=== PATIENT | female | born 1990 | race Two or more races ===

== ENCOUNTER 2023-01-04 14:57 | Emergency (ER) | payer SELFPAY ==
[~2023-01-04] VITALS: Ht 160 cm; Wt 59.0 kg
[2023-01-04 14:59] VITALS: BP 126/81; PULSE 99; RESP 16; TEMP 99.1; O2SAT 98
== END 2023-01-04 15:46 | disposition home or self-care (01) ==
LOC: ER 15:00
DX: Z00.00 Encounter for general adult medical examination without abnormal findings (principal); J45.909 Unspecified asthma, uncomplicated; Z88.8 Allergy status to other drugs, medicaments and biological substances; Z98.890 Other specified postprocedural states
CPT/HCPCS: 99283